=== PATIENT | male | born 1995 | race Caucasian/White ===

== ENCOUNTER 2017-07-22 01:02 | Emergency (ER) | payer SELFPAY ==
[2017-07-22 01:16] VITALS: BP 149/83
[2017-07-22] MEDS ORDERED: IBUPROFEN 600 MG TABLET PO ONE (02:06)
[2017-07-22] MEDS ORDERED: AMOXICILLIN TRIHYDRATE 500 MG CAPSULE PO ONE (02:06)
--- NOTE | 2017-07-22 02:12 | ER Document Report ---
ED General - General Chief Complaint: Ear Pain Stated Complaint: EAR/NECK PAIN Time Seen by Provider: 07/22/17 02:00 Notes: Patient is 22-year-old male comes in with complaint of ear pain. Says some congestion for last couple days but denies of any symptoms started having severe pain. No fevers at home. No vomiting. No difficulty breathing. No other complaints at this time. Is otherwise healthy. TRAVEL OUTSIDE OF THE [place] IN LAST 30 DAYS: No - Related Data Allergies/Adverse Reactions: No Known Allergies Allergy (Unverified 02/18/11 17:08) Past Medical History - Social History Smoking Status: Unknown if Ever Smoked Frequency of alcohol use: None Drug Abuse: None Family History: CAD, Hyperlipidemia, Hypertension Past Surgical History: Reports: Hx Myringotomy - Immunizations Immunizations up to date: Yes Hx Diphtheria, Pertussis, Tetanus Vaccination: Yes Review of Systems - Review of Systems Notes: My Normal Review Basic REVIEW OF SYSTEMS: CONSTITUTIONAL : Denies fever, chills, or sweats. Denies recent illness. EENT: Left ear pain RESPIRATORY: Cough GASTROINTESTINAL: Denies abdominal pain. Denies nausea, vomiting, or diarrhea. GENITOURINARY: Denies difficulty urinating, painful urination, burning, frequency, or blood in urine. MUSCULOSKELETAL: Denies neck or back pain or joint pain or swelling. SKIN: Denies rash or skin lesions. NEUROLOGICAL: Denies altered mental status or loss of consciousness. Denies headache. Denies weakness or paralysis or loss of use of either side. Denies problems with gait or speech. Denies sensory or motor loss. ALL OTHER SYSTEMS REVIEWED AND NEGATIVE. Physical Exam - Vital signs Vitals: Temp Pulse Resp BP Pulse Ox 98.3 F 68 12 149/83 H 97 07/22/17 01:14 07/22/17 01:14 07/22/17 01:14 07/22/17 01:14 07/22/17 01:14 - Notes Notes: General Appearance: Well nourished, alert, cooperative, no acute distress, no obvious discomfort. Well-appearing. Vitals: reviewed, See vital signs table. Head: no swelling or tenderness to the head Eyes: PERRL, EOMI, Conjuctiva clear Mouth: No decreasd moisture Throat: No tonsillar inflammation, No airway obstruction, No lymphadenopathy Ears: Patient has erythematous red bulging left TM. Right TM is normal appearing. Neck: Supple, no neck tenderness, No thyromegaly Lungs: No wheezing, No rales, No rhonci, No accessory muscle use, good air exchange bilaterally. Heart: Normal rate, Regular rythm, No murmur, no rub Skin: warm, dry, appropriate color, no rash Neuro: speech clear, oriented x 3, normal affect, responds appropriately to questions. Course - Re-evaluation Re-evalutation: 07/22/17 06:39 Patient's exam is consistent with otitis media. I did place him on amoxicillin. Encouraged to return to the ER immediately if he has worsening pain, severe headache, fevers, or feels unwell. He has no redness or swelling over the mastoid. Dictation of this chart was performed using voice recognition software; therefore, there may be some unintended grammatical errors. - Vital Signs Vital signs: Temp Pulse Resp BP Pulse Ox 98.3 F 68 12 149/83 H 97 07/22/17 01:14 07/22/17 01:14 07/22/17 01:14 07/22/17 01:14 07/22/17 01:14 Discharge - Discharge Clinical Impression: URI (upper respiratory infection) Qualifiers: URI type: unspecified URI Qualified Code(s): J06.9 - Acute upper respiratory infection, unspecified Otitis media Qualifiers: Otitis media type: unspecified Chronicity: acute Qualified Code(s): H66.90 - Otitis media, unspecified, unspecified ear Condition: Good Disposition: HOME, SELF-CARE Additional Instructions: Otitis Media You have a middle ear infection (otitis media). This is usually a complication of a cold or sore throat. The middle ear cavity becomes filled with infection. Pressure and stretching of the ear drum cause pain. Antibiotics are required. A follow-up exam may be recommended to make sure the infection has completely cleared. If the ear begins to drain, it means the ear drum has ruptured. This will usually heal spontaneously. However, it means you should keep the ear dry until re-examined by a doctor. Call the physician or return for examination at once if there is severe headache, stiff neck, confusion, increasing fever, or dizziness. You should improve significantly within two days. If you're not better, call the doctor. Prescriptions: Amoxicillin Trihydrate [Amoxil 500 mg Capsule] 1,000 mg PO TID #42 cap Forms: Return to Work
== END 2017-07-22 02:33 | disposition home or self-care (01) ==
LOC: ER 01:02
DX: J06.9 Acute upper respiratory infection, unspecified (principal); H66.90 Otitis media, unspecified, unspecified ear
CPT/HCPCS: 99282

== ENCOUNTER 2019-11-08 17:05 | Emergency (ER) | payer SELFPAY ==
[2019-11-08 17:10] VITALS: BP 155/79
--- NOTE | 2019-11-08 17:47 | ER Document Report ---
ED General - General Chief Complaint: Ear Pain Stated Complaint: EAR PAIN/VOMITING Time Seen by Provider: 11/08/19 17:46 TRAVEL OUTSIDE OF THE [place] IN LAST 30 DAYS: No - HPI Notes: 24-year-old male presents emergency room for bilateral ear pain that started last night. Patient states that he has had a cold for the last couple of weeks, states he vomited a couple of times but his symptoms have resolved now he has bilateral ear pain. Patient states that he does get this at least once a year. Has not tried any [id number] medications. Patient thinks he has seasonal allergies not take any medication. Denies any drainage from ears. Pain is 3 out of 5. Denies fevers, chills, chest pain,palpitations, shortness of breath, dyspnea, nausea, vomiting, diarrhea, abdominal pain, hematuria,blurred vision, double vision, loss of vision, speech changes, LH, dizziness, syncope, headaches, wheezing, ST, URI, neck pain, weakness, bowel or bladder dysfunction, saddle anesthesia, numbness or tingling in bilateral upper or lower extremities equally, muscle paralysis, weakness in bilateral upper or lower extremities equally or rash. Denies IV drug use. MEDICATIONS: I agree with the patient medications as charted by the RN. ALLERGIES: I agree with the allergies as charted by the RN. PAST MEDICAL HISTORY/PAST SURGICAL HISTORY: Reviewed and agree as charted by RN. SOCIAL HISTORY: Reviewed and agree as charted by RN. FAMILY HISTORY: No significant familial comorbid conditions directly related to patient complaint EXAM: Reviewed vital signs as charted by RN. REVIEW OF SYSTEMS:reviewed vital signs by RN CONSTITUTIONAL : Denies fever, chills, or sweats. Denies recent illness. EENT: reports bilateral ear pain. Denies eye, ear, throat, or mouth pain or symptoms. Denies nasal or sinus congestion or discharge. Denies throat, tongue, or mouth swelling or difficulty swallowing. CARDIOVASCULAR: Denies chest pain. Denies palpitations or racing or irregular heart beat. Denies ankle edema. RESPIRATORY: Denies cough, cold, or chest congestion. Denies shortness of breath, difficulty breathing, or wheezing. GASTROINTESTINAL: Denies abdominal pain or distention. Denies nausea, vomiting, or diarrhea. Denies blood in vomitus, stools, or per rectum. Denies black, tarry stools. Denies constipation. GENITOURINARY: Denies difficulty urinating, painful urination, burning, f requency, blood in urine, or discharge. MUSCULOSKELETAL: Denies back or neck pain or stiffness. Denies joint pain or swelling. SKIN: Denies rash, lesions or sores. HEMATOLOGIC : Denies easy bruising or bleeding. LYMPHATIC: Denies swollen, enlarged glands. NEUROLOGICAL: Denies confusion or altered mental status. Denies passing out or loss of consciousness. Denies dizziness or lightheadedness. Denies headache. Denies weakness or paralysis or loss of use of either side. Denies problems with gait or speech. Denies sensory loss, numbness, or tingling. Denies seizures. PSYCHIATRIC: Denies anxiety or stress. Denies depression, suicidal ideation, or homicidal ideation. ALL OTHER SYSTEMS REVIEWED AND NEGATIVE. Dictation was performed using [employer] voice recognition software PHYSICAL EXAMINATION: GENERAL: Well-appearing, well-nourished and in no acute distress. HEAD: Atraumatic, normocephalic. EYES: Pupils equal round and reactive to light, extraocular movements intact, sc andrew anicteric, conjunctiva are normal. ENT: Bilateral TMs with erythema, intact, no drainage. External auditory canals with slight erythema, no exudate or drainage. Nares patent, oropharynx clear without exudates. Moist mucous membranes. Uvula midline, no uvula edema or deviation NECK: Normal range of motion, supple without lymphadenopathy LUNGS: Breath sounds clear to auscultation bilaterally and equal. No wheezes rales or rhonchi. HEART: Regular rate and rhythm without murmurs ABDOMEN: Soft, nontender, nondistended abdomen. No guarding, no rebound. No masses appreciated. Musculoskeletal: Normal range of motion, no pitting or edema. No cyanosis. NEUROLOGICAL: Cranial nerves grossly intact. Normal speech, normal gait. Normal sensory, motor exams PSYCH: Normal mood, normal affect. SKIN: Warm, Dry, normal turgor, no rashes or lesions noted. - Related Data Allergies/Adverse Reactions: No Known Allergies Allergy (Verified 11/08/19 17:48) Past Medical History - General Information source: Patient - Social History Smoking Status: Unknown if Ever Smoked Family History: CAD, Hyperlipidemia, Hypertension Renal/ Medical History: Denies: Hx Peritoneal Dialysis Past Surgical History: Reports: Hx Myringotomy - Immunizations Immunizations up to date: Yes Hx Diphtheria, Pertussis, Tetanus Vaccination: Yes Physical Exam - Vital signs Vitals: Temp Pulse Resp BP Pulse Ox 98.9 F 98 18 155/79 H 100 11/08/19 17:10 11/08/19 17:10 11/08/19 17:10 11/08/19 17:10 11/08/19 17:10 Course - Re-evaluation Re-evalutation: 11/08/19 18:04 Afebrile, slightly hypertensive if patient is in pain, nurses notes reviewed. Patient does have a bilateral acute otitis media, will give patient a gram of Rocephin IM. Patient is unsure if he will be able to afford antibiotics, discussed good Rx pharmacy discount program. Discussed with patient that he needs to alternate Tylenol and ibuprofen for pain control, follow-up with ENT within the next 5 days as well as his PCP. TMs are intact, no TM rupture. No acute otitis externa noted. After performing a Medical Screening Examination, I estimate there is LOW risk for malignant otitis media, mastoiditis, MENINGITIS, or ACUTE CORONARY SYNDROME, thus I consider the discharge disposition reasonable. I have reevaluated this patient multiple times and no significant life threatening changes are noted. The patient and I have discussed the diagnosis and risks, and we agree with discharging home to follow-up on an outpatient basis with the understanding that symptoms and presentations can change. We also discussed returning to the Emergency Department immediately if new or worsening symptoms occur. We have discussed the symptoms which are most concerning (e.g., high fevers, confusion) that necessitate immediate return. - Vital Signs Vital signs: Temp Pulse Resp BP Pulse Ox 98.9 F 98 18 155/79 H 100 11/08/19 17:10 11/08/19 17:10 11/08/19 17:10 11/08/19 17:10 11/08/19 17:10 Discharge - Discharge Clinical Impression: Bilateral acute otitis media Condition: Stable Disposition: HOME, SELF-CARE Instructions: Otitis Media ([facility]), Rocephin ([facility]) Additional Instructions: Otitis Media You have a middle ear infection (otitis media). This is usually a complication of a cold or sore throat. The middle ear cavity becomes filled with infection. Pressure and stretching of the ear drum cause pain. Antibiotics are required. A decongestant may be recommended if you have a "runny nose." You may need anesthetic drops or other pain medication. A follow-up exam may be recommended to make sure the infection has completely cleared. If the ear begins to drain, it means the ear drum has ruptured. This will usually heal spontaneously. However, it means you should keep the ear dry until re-examined by a doctor. Call the physician or return for examination at once if there is severe headache, stiff neck, confusion, increasing fever, or dizziness. You should improve significantly within two days. If you're not better, call the doctor. Follow-up with PCP and ENT as needed. Please take food while taking antibiotic. You were given 1 g of Rocephin today for bilateral ear infection. Return immediately for any new or worsening symptoms. Follow up with primary care provider, call tomorrow to make followup ap pointment. Prescriptions: Azithromycin [Zithromax] 250 mg PO DAILY 5 Days #6 tablet Referrals: YELENA VILLANUEVA MD [ACTIVE STAFF] - Follow up as needed DANG ARGUETA MD [ACTIVE STAFF] - Follow up as needed
[2019-11-08] MEDS ORDERED: CEFTRIAXONE INJ 1000 MG VIAL IM ONE (17:58)
[2019-11-08] MEDS ORDERED: LIDOCAINE 1% INJ-PF (10 MG/ML) 30 ML SDV INJ ONE (17:58)
[2019-11-08] MEDS ORDERED: IBUPROFEN 800 MG TABLET PO ONE (18:02)
== END 2019-11-08 18:47 | disposition home or self-care (01) ==
LOC: ER 17:05
DX: H66.93 Otitis media, unspecified, bilateral (principal)
CPT/HCPCS: 99284; 96372; J3490; J0696